=== PATIENT | female | born 1985 | race Caucasian/White ===

== ENCOUNTER 2017-10-09 16:50 | Emergency (ER) | payer OTHER ==
[~2017-10-09] VITALS: Ht 157.5 cm; Wt 42.9 kg
[2017-10-09 17:23] VITALS: BP 111/57; PULSE 73; RESP 16; TEMP 99; O2SAT 99
--- NOTE | 2017-10-09 18:56 | PD ---
HPI Chief Complaint: Related Problem Time Seen by Provider: 18:53 Travel History International Travel<30 days: No Contact w/Intl Traveler<30days: No Traveled to known affect area: No History of Present Illness HPI Patient comes in complaining of some vaginal bleeding, and abdominal cramping, ongoing for the past day or so. Patient states that she is with her last menstrual period during September 02, 2017.... Currently her cramping is 0 out of 10. Patient denies any active ongoing bleeding. Patient is here for ongoing evaluation and just concerned about possible miscarriage. Patient denies any previous miscarriages. No known drug allergy No past medical history PFSH Social History Tobacco Use: No Allergies-Medications (Allergen,Severity, Reaction): Coded Allergies: No Known Allergies (Unverified , 10/09/17) Reported Meds & Prescriptions Reported Meds & Active Scripts Active No Active Prescriptions or Reported Medications Review of Systems General / Constitutional: No: Fever Eyes: No: Visual changes HENT: No: Headaches Cardiovascular: No: Chest Pain or Discomfort Respiratory: No: Shortness of Breath Gastrointestinal: No: Abdominal Pain Genitourinary: Positive: Vaginal Bleeding Musculoskeletal: No: Pain Skin: No Rash Neurologic: No: Weakness Psychiatric: No: Depression Endocrine: No: Polydipsia Hematologic/Lymphatic: No: Easy Bruising Physical Exam Narrative GENERAL: SKIN: Warm and dry. HEAD: Atraumatic. Normocephalic. EYES: Pupils equal and round. No scleral icterus. No injection or drainage. ENT: No nasal bleeding or discharge. Mucous membranes pink and moist. NECK: Trachea midline. No JVD. CARDIOVASCULAR: Regular rate and rhythm. RESPIRATORY: No accessory muscle use. Clear to auscultation. Breath sounds equal bilaterally. GASTROINTESTINAL: Abdomen soft, non-tender, nondistended. MUSCULOSKELETAL: Extremities without clubbing, cyanosis, or edema. No obvious deformities. NEUROLOGICAL: Awake and alert. No obvious cranial nerve deficits. Motor grossly within normal limits. Five out of 5 muscle strength in the arms and legs. Normal speech. PSYCHIATRIC: Appropriate mood and affect; insight and judgment normal. Data Data Last Documented VS Vital Signs Date Time Temp Pulse Resp B/P (MAP) Pulse Ox O2 Delivery O2 Flow Rate FiO2 10/09/17 20:57 70 18 111/73 (86) 99 Room Air 10/09/17 17:23 99.0 Orders Orders Beta Hcg (Quant/Titer) (10/09/17 19:06) Complete Blood Count With Diff (10/09/17 19:06) Comprehensive Metabolic Panel (10/09/17 19:06) Lipase (10/09/17:06) Urinalysis - C+S If Indicated (10/09/17 19:06) Iv Access Insert/Monitor (10/09/17 19:06) Ecg Monitoring (10/09/17 19:06) Oximetry (10/09/17 19:06) NPO (10/09/17 19:06) Sodium Chloride 0.9% Flush (Ns Flush) (10/09/17 19:15) Ed Urine Pregnancytest Poc (10/09/17 19:06) Complete Rh (10/09/17 19:06) Us Pelvis (Ques Pr/Ect)W Trans (10/09/17 19:06) Labs Laboratory Tests Test 10/09/17 19:20 White Blood Count 8.1 TH/MM3 Red Blood Count 4.36 MIL/MM3 Hemoglobin 12.8 GM/DL Hematocrit 37.3 % Mean Corpuscular Volume 85.5 FL Mean Corpuscular Hemoglobin 29.4 PG Mean Corpuscular Hemoglobin Concent 34.4 % Red Cell Distribution Width 12.0 % Platelet Count 257 TH/MM3 Mean Platelet Volume 7.2 FL Neutrophils (%) (Auto) 52.4 % Lymphocytes (%) (Auto) 38.4 % Monocytes (%) (Auto) 8.1 % Eosinophils (%) (Auto) 0.8 % Basophils (%) (Auto) 0.3 % Neutrophils # (Auto) 4.2 TH/MM3 Lymphocytes # (Auto) 3.1 TH/MM3 Monocytes # (Auto) 0.7 TH/MM3 Eosinophils # (Auto) 0.1 TH/MM3 Basophils # (Auto) 0.0 TH/MM3 CBC Comment DIFF FINAL Differential Comment Urine Color YELLOW Urine Turbidity CLEAR Urine pH 5.5 Urine Specific [place] 1.010 Urine Protein NEG mg/dL Urine Glucose (UA) NEG mg/dL Urine Ketones NEG mg/dL Urine Occult Blood TRACE Urine Nitrite NEG Urine Bilirubin NEG Urine Urobilinogen 0.2 MG/DL Urine Leukocyte Esterase NEG Urine RBC 0-3 /hpf Urine WBC 0-2 /hpf Urine Squamous Epithelial Cells 0-5 /hpf Microscopic Urinalysis Comment CULT NOT INDICATED Blood Urea Nitrogen 17 MG/DL Creatinine 0.63 MG/DL Random Glucose 81 MG/DL Total Protein 7.4 GM/DL Albumin 3.8 GM/DL Calcium Level 8.7 MG/DL Alkaline Phosphatase 48 U/L Aspartate Amino Transf (AST/SGOT) 16 U/L Alanine Aminotransferase (ALT/SGPT) 18 U/L Total Bilirubin 0.2 MG/DL Sodium Level 138 MEQ/L Potassium Level 3.6 MEQ/L Chloride Level 105 MEQ/L Carbon Dioxide Level 26.9 MEQ/L Anion Gap 6 MEQ/L Estimat Glomerular Filtration Rate 111 ML/MIN Lipase 133 U/L Human Chorionic Gonadotropin, Quant 7521 MIU/ML [facility] Medical Decision Making Medical Screen Exam Complete: Yes Emergency Medical Condition: Yes Medical Record Reviewed: Yes Differential Diagnosis Threatened AB versus missed AB versus incomplete AB versus UTI Narrative Course UA is negative for any UTI CBC shows no leukocytosis, no anemia, normal platelet count and no left shift. Electrolytes are all within normal limits, normal kidney liver and pancreatic functions as well. Blood bank currently waiting, hCG quant currently awaiting, and ultrasound currently awaiting as well at 2025. At 2050 blood bank O+/////Quantitative hCG 7521 Ultrasound performed and read by radiologist as gestational sac in the endometrial cavity with measurements too small for accurate dating, however no adnexal masses are noted or large free fluid in the cul-de-sac or throughout the Ellik cavity Diagnosis Primary Impression: Threatened Patient Instructions: General Instructions, Threatened Miscarriage (ED) Scripts No Active Prescriptions or Reported Meds Disposition: 01 DISCHARGE HOME Condition: Stable Miller Soto MD Oct 09, 2017 18:56
[2017-10-09 19:10] VITALS: BP 113/74; PULSE 73; RESP 18; O2SAT 99
[2017-10-09 19:13] VITALS: O2SAT 99
[2017-10-09] MEDS ORDERED: SODIUM CHLORIDE 0.9% FLUSH 10 ML FLUSH IV FLUSH PRN (19:15)
[2017-10-09 19:43] LABS: AUTOMATED NEUTROPHIL # 4.2 TH/MM3 (1.8-7.7); BASOPHIL % 0.3 % (0.0-2.0); EOSINOPHIL # 0.1 TH/MM3 (0-0.4); EOSINOPHIL % 0.8 % (0.0-4.0); HEMATOCRIT 37.3 % (35.0-46.0); HEMOGLOBIN 12.8 GM/DL (11.6-15.3); LYMPH % 38.4 % (9.0-44.0); LYMPHOCYTE # 3.1 TH/MM3 (1.0-4.8); MEAN CELL VOLUME 85.5 FL (80.0-100.0); MEAN CORPUSCULAR HEMOGLOBIN 29.4 PG (27.0-34.0); MEAN CORPUSCULAR HGB CONC 34.4 % (32.0-36.0); MEAN PLATELET VOLUME 7.2 FL (7.0-11.0); MONO % 8.1 % (0.0-8.0); MONOCYTE # 0.7 TH/MM3 (0-0.9); NEUT % 52.4 % (16.0-70.0); PLATELET COUNT 257 TH/MM3 (150-450); RED BLOOD COUNT 4.36 MIL/MM3 (4.00-5.30); WHITE BLOOD COUNT 8.1 TH/MM3 (4.0-11.0)
[2017-10-09 19:46] LABS: BILIRUBIN, URINE NEG (NEG); BLOOD, URINE TRACE (NEG); GLUCOSE,URINE NEG (NEG); KETONE, URINE NEG (NEG); NITRITE,URINE NEG (NEG); PH, URINE 5.5 (5.0-8.5); URINE COLOR YELLOW (YELLW/STRAW); URINE LEUKOCYTE ESTERASE NEG (NEG)
[2017-10-09 19:53] LABS: CHLORIDE 105 MEQ/L (98-107); SODIUM (NA) 138 MEQ/L (136-145)
[2017-10-09 19:56] LABS: ALBUMIN 3.8 GM/DL (3.4-5.0); BICARBONATE 26.9 MEQ/L (21.0-32.0); BLOOD UREA NITROGEN 17 MG/DL (7-18); CALCIUM 8.7 MG/DL (8.5-10.1); GLUCOSE,RANDOM 81 MG/DL (74-106)
[2017-10-09 19:59] LABS: ALT (GPT) 18 U/L (10-53); AST (GOT) 16 U/L (15-37); CREATININE 0.63 MG/DL (0.50-1.00); GLOMERULAR FILTRATION RATE 111 ML/MIN (>89)
[2017-10-09 20:00] LABS: TOTAL BILIRUBIN ADULT 0.2 MG/DL (0.2-1.0)
[2017-10-09 20:01] LABS: TOTAL PROTEIN 7.4 GM/DL (6.4-8.2)
[2017-10-09 20:02] LABS: ALKALINE PHOSPHATASE 48 U/L (45-117)
[2017-10-09 20:05] LABS: RBC, URINE 0-3 /hpf (0-3); SQUAMOUS EPITHELIAL CELL URINE 0-5 /hpf (0-5); WBC, URINE 0-2 /hpf (0-5)
[2017-10-09 20:57] VITALS: BP 111/73; PULSE 70; RESP 18; O2SAT 99
--- NOTE | 2017-10-09 21:36 | RADRPT ---
EXAM DATE/TIME: 10/09/2017 20:42 [place] COMPARISON: No previous studies available for comparison. INDICATIONS : Vaginal bleeding and pain. LAB(S): Beta-hC MEDICAL HISTORY : Vaginal pain and bleeding. SURGICAL HISTORY : None. ENCOUNTER: Initial ACUITY: 1 day PAIN SCORE: 3/10 LOCATION: Left pelvis MEASUREMENTS: UTERUS: 9.5 x 7.1 x 4.9 cm ENDOMETRIAL STRIPE: 8 mm RIGHT OVARY: 3.1 x 3.1 x 1.9 cm LEFT OVARY: cm Non visualized FREE FLUID: Yes cul de sac. CROWN RUMP LENGTH: n/a = WKS DAYS FHR: n/a BPM FINDINGS: Gestational sac present in the uterine fundus with measurement to small for accurate dating. No yolk sac or pole. Smaller free fluid in cul-de-sac. Follicular cysts in the right ovary. Left ovary not visualized. CONCLUSION: 1. Gestational sac in the endometrial cavity with measurements too small for accurate dating. 2. Small amount free fluid in the cul-de-sac. Santiago Perkins MD on October 09, 2017 at 21:31 Board Certified Radiologist. This report was verified electronically.
[2017-10-09 22:16] VITALS: BP 112/76
== END 2017-10-09 22:17 | disposition home or self-care (01) ==
LOC: PHED 16:50
DX: O20.0 Threatened abortion (principal)
CPT/HCPCS: 76700; 76817; 80053; 81001; 83690; 84702; 84703; 85025; 86901; 99284

== ENCOUNTER 2018-01-04 19:03 | Emergency (ER) | payer MEDICAID, OTHER ==
[~2018-01-04] VITALS: Ht 157.5 cm; Wt 46.8 kg
[2018-01-04 19:08] VITALS: BP 96/53; PULSE 80; RESP 16; TEMP 97.9; O2SAT 98
--- NOTE | 2018-01-04 19:34 | PD ---
HPI Chief Complaint: Abdominal pain Time Seen by Provider: 19:20 Travel History International Travel<30 days: No Contact w/Intl Traveler<30days: No Traveled to known affect area: No History of Present Illness HPI 32yo F who is 17 weeks here with c/o right lower abdominal pain since yesterday. Said it is sharp and nonradiating. Abdomen feels tight but pain is mainly in right lower abdomen. Pt has some dysuria. Denies any fever, chest pain, sob, n/v, hematuria, vaginal bleeding, vaginal discharge. Pt said she thinks she has umbilical hernia. No abdominal surgeries in the past. PFSH Past Medical History Diminished Hearing: No ?: Social History Alcohol Use: No Tobacco Use: No Substance Use: No Allergies-Medications (Allergen,Severity, Reaction): Coded Allergies: No Known Allergies (Unverified , 01/04/18) Reported Meds & Prescriptions Reported Meds & Active Scripts Active Cephalexin 500 Mg Cap 500 Mg PO Q12H 7 Days Reported Tylenol (Acetaminophen) 325 Mg Tab 650 Mg PO Q4H PRN [] 1 Tab PO DAILY Review of Systems Except as stated in HPI: all other systems reviewed are Neg Physical Exam Narrative GENERAL: 32yo F in mild distress. SKIN: Focused skin assessment warm/dry. HEAD: Atraumatic. Normocephalic. EYES: Pupils equal and round. No scleral icterus. No injection or drainage. ENT: No nasal bleeding or discharge. Mucous membranes pink and moist. NECK: Trachea midline. No JVD. CARDIOVASCULAR: Regular rate and rhythm. No murmur appreciated. RESPIRATORY: No accessory muscle use. Clear to auscultation. Breath sounds equal bilaterally. GASTROINTESTINAL: Abdomen soft, gravid abdomen. +TTP RLQ and suprapubic region. Umbilical region is soft, no hernia palpated. PELVIC: +Small amount of white vaginal discharge. No blood. No CMT or adnexal tenderness bilaterally. Cervical os closed. BACK: +CVA tenderness on right. MUSCULOSKELETAL: No obvious deformities. No clubbing. No cyanosis. No edema. NEUROLOGICAL: Awake and alert. No obvious cranial nerve deficits. Motor grossly within normal limits. Normal speech. PSYCHIATRIC: Appropriate mood and affect; insight and judgment normal. Data Data Last Documented VS Vital Signs Date Time Temp Pulse Resp B/P (MAP) Pulse Ox O2 Delivery O2 Flow Rate FiO2 01/04/18 22:47 72 18 106/65 (79) 98 01/04/18 20:51 Room Air 01/04/18 19:08 97.9 Orders Orders Complete Blood Count With Diff (01/04/18 19:28) Comprehensive Metabolic Panel (01/04/18 19:28) Lipase (01/04/18 19:28) Urinalysis - C+S If Indicated (01/04/18 19:28) Prothrombin Time / Inr (Pt) (01/04/18 19:28) Act Partial Throm Time (Ptt) (01/04/18 19:28) Ed Poc Ultrasound (01/04/18 ) Urine Culture (01/04/18 19:43) Ceftriaxone Inj (Rocephin Inj) (01/04/18 20:15) Gc And Chlamydia Pcr (01/04/18 20:05) Wet Prep Profile (01/04/18 20:05) Acetaminophen (Tylenol) (01/04/18 20:30) Sodium Chlor 0.9% 1000 Ml Inj (Ns 1000 M (01/04/18 20:45) Mri Abdomen W/O Contrast (01/04/18 ) Ed Discharge Order (01/04/18 22:22) Labs Laboratory Tests Test 01/04/18 19:30 01/04/18 19:43 01/04/18 20:30 White Blood Count 8.6 TH/MM3 Red Blood Count 3.95 MIL/MM3 Hemoglobin 11.6 GM/DL Hematocrit 34.7 % Mean Corpuscular Volume 87.8 FL Mean Corpuscular Hemoglobin 29.2 PG Mean Corpuscular Hemoglobin Concent 33.3 % Red Cell Distribution Width 11.8 % Platelet Count 257 TH/MM3 Mean Platelet Volume 7.8 FL Neutrophils (%) (Auto) 60.9 % Lymphocytes (%) (Auto) 30.6 % Monocytes (%) (Auto) 7.2 % Eosinophils (%) (Auto) 0.7 % Basophils (%) (Auto) 0.6 % Neutrophils # (Auto) 5.2 TH/MM3 Lymphocytes # (Auto) 2.6 TH/MM3 Monocytes # (Auto) 0.6 TH/MM3 Eosinophils # (Auto) 0.1 TH/MM3 Basophils # (Auto) 0.1 TH/MM3 CBC Comment DIFF FINAL Differential Comment Prothrombin Time 9.8 SEC Prothromb Time International Ratio 1.0 RATIO Activated Partial Thromboplast Time 25.0 SEC Blood Urea Nitrogen 13 MG/DL Creatinine 0.55 MG/DL Random Glucose 86 MG/DL Total Protein 7.2 GM/DL Albumin 3.1 GM/DL Calcium Level 8.3 MG/DL Alkaline Phosphatase 56 U/L Aspartate Amino Transf (AST/SGOT) 18 U/L Alanine Aminotransferase (ALT/SGPT) 23 U/L Total Bilirubin 0.3 MG/DL Sodium Level 136 MEQ/L Potassium Level 3.8 MEQ/L Chloride Level 105 MEQ/L Carbon Dioxide Level 23.3 MEQ/L Anion Gap 8 MEQ/L Estimat Glomerular Filtration Rate 130 ML/MIN Lipase 302 U/L Urine Color YELLOW Urine Turbidity [place] Urine pH 7.0 Urine Specific [place] 1.015 Urine Protein TRACE mg/dL Urine Glucose (UA) NEG mg/dL Urine Ketones NEG mg/dL Urine Occult Blood NEG Urine Nitrite NEG Urine Bilirubin NEG Urine Urobilinogen 0.2 MG/DL Urine Leukocyte Esterase MOD Urine RBC 0-3 /hpf Urine WBC 50-99 /hpf Urine Squamous Epithelial Cells 0-5 /hpf Urine Bacteria FEW /hpf Microscopic Urinalysis Comment CULTURE INDICATED Clue Cells (Wet Prep) NONE SEEN Vaginal Trichomonas (Wet Prep) NONE SEEN Vaginal Yeast (Wet Prep) NONE SEEN Chlamydia trachomatis DNA (PCR) NOT DETECTED Neisseria gonorrhoeae DNA (PCR) NOT DETECTED MDM Medical Decision Making Medical Screen Exam Complete: Yes Emergency Medical Condition: Yes Differential Diagnosis Appendicitis vs. pyelonephritis vs. related pain Narrative Course 32yo F with right lower abdominal pain. Pt also with dysuria but need to r/o appendicitis. MRI abdomen ordered to r/o appendicitis. Labs reviewed, no leukocytosis. Lipase normal. LFTs normal. UA showed moderate leukocyte. WBC 50-99. Culture indicated. Pt given ceftriaxone. Bedside Ultrasound reassuring and showed movement and normal heart rate. Wet prep negative. MRI abdomen showed mild hydronephrosis which is not unexpected secondary to gravid uterus. Otherwise no acute abnormality. Appendix is not definitely visualized. No inflammatory change in right lower quadrant to suggest acute appendicitis. I discussed with patient either to observe her in the hospital for serial abdominal exam or to have her return to the ED if symptoms worsen. Pt wants to go home and said will return if symptoms worsen. Tolerating PO and well appearing. Return precautions given. Procedures Procedure Narrative Emergency Department Pelvic ultrasound was performed with patient consent. The curvilinear probe was used in the transverse and sagittal views within the suprapubic region revealing single intrauterine . heart rate was 145bpm. Diagnosis Primary Impression: Pyelonephritis affecting Qualified Codes: O23.02 - Infections of kidney in , second trimester Patient Instructions: General Instructions Departure Forms: Tests/Procedures Additional Instructions: Please follow up with your OBGYN in 1-2 days. Return to the ED if you have fever, vomiting, unable to keep anything down, worsening abdominal pain. Med/Other Pt SpecificInfo: Prescription(s) given Scripts Cephalexin (Cephalexin) 500 Mg Cap 500 MG PO Q12H for Infection for 7 Days, #14 CAP 0 Refills Prov: Nina Rodriguez DO 01/04/18 Disposition: 01 DISCHARGE HOME Condition: Stable Nina Rodriguez DO Jan 04, 2018 19:34
[2018-01-04 19:52] LABS: BILIRUBIN, URINE NEG (NEG); BLOOD, URINE NEG (NEG); GLUCOSE,URINE NEG (NEG); KETONE, URINE NEG (NEG); NITRITE,URINE NEG (NEG); URINE COLOR YELLOW (YELLW/STRAW); URINE LEUKOCYTE ESTERASE MOD (NEG)
[2018-01-04 19:55] LABS: AUTOMATED NEUTROPHIL # 5.2 TH/MM3 (1.8-7.7); BASOPHIL # 0.1 TH/MM3 (0-0.2); BASOPHIL % 0.6 % (0.0-2.0); EOSINOPHIL # 0.1 TH/MM3 (0-0.4); EOSINOPHIL % 0.7 % (0.0-4.0); HEMATOCRIT 34.7 % (35.0-46.0); HEMOGLOBIN 11.6 GM/DL (11.6-15.3); LYMPH % 30.6 % (9.0-44.0); LYMPHOCYTE # 2.6 TH/MM3 (1.0-4.8); MEAN CELL VOLUME 87.8 FL (80.0-100.0); MEAN CORPUSCULAR HEMOGLOBIN 29.2 PG (27.0-34.0); MEAN CORPUSCULAR HGB CONC 33.3 % (32.0-36.0); MEAN PLATELET VOLUME 7.8 FL (7.0-11.0); MONO % 7.2 % (0.0-8.0); MONOCYTE # 0.6 TH/MM3 (0-0.9); NEUT % 60.9 % (16.0-70.0); PLATELET COUNT 257 TH/MM3 (150-450); RED BLOOD COUNT 3.95 MIL/MM3 (4.00-5.30); RED CELL DISTRIBUTION WIDTH 11.8 % (11.6-17.2); WHITE BLOOD COUNT 8.6 TH/MM3 (4.0-11.0)
[2018-01-04 19:58] LABS: CHLORIDE 105 MEQ/L (98-107); SODIUM (NA) 136 MEQ/L (136-145)
[2018-01-04 19:59] LABS: BACTERIA, URINE FEW /hpf; RBC, URINE 0-3 /hpf (0-3); SQUAMOUS EPITHELIAL CELL URINE 0-5 /hpf (0-5)
[2018-01-04 20:01] LABS: CALCIUM 8.3 MG/DL (8.5-10.1)
[2018-01-04 20:02] LABS: ALBUMIN 3.1 GM/DL (3.4-5.0); BICARBONATE 23.3 MEQ/L (21.0-32.0); BLOOD UREA NITROGEN 13 MG/DL (7-18); GLUCOSE,RANDOM 86 MG/DL (74-106)
[2018-01-04 20:04] LABS: PROTHROMBIN TIME - PATIENT 9.8 SEC (9.8-11.6)
[2018-01-04 20:05] LABS: ALT (GPT) 23 U/L (10-53); AST (GOT) 18 U/L (15-37); CREATININE 0.55 MG/DL (0.50-1.00); GLOMERULAR FILTRATION RATE 130 ML/MIN (>89)
[2018-01-04 20:06] LABS: TOTAL BILIRUBIN ADULT 0.3 MG/DL (0.2-1.0); TOTAL PROTEIN 7.2 GM/DL (6.4-8.2)
[2018-01-04 20:08] LABS: ALKALINE PHOSPHATASE 56 U/L (45-117)
[2018-01-04] MEDS ORDERED: cefTRIAXone INJ 1,000 MG in SODIUM CHLORIDE 0.9% INJ 100 ML IV ONE (20:15)
[2018-01-04] MEDS ORDERED: ACETAMINOPHEN 325 MG TAB PO ONE (20:30)
[2018-01-04] MEDS ORDERED: SODIUM CHLOR 0.9% 1000 ML INJ 1,000 ML IV ONE (20:45)
[2018-01-04 20:51] VITALS: BP 99/60; PULSE 76; RESP 18; O2SAT 99
[2018-01-04] MEDS ORDERED: TYLE325T PO (21:21)
[2018-01-04] MEDS ORDERED: prenatal PO (21:21)
--- NOTE | 2018-01-04 21:29 | RADRPT ---
EXAM DATE: 01/04/2018 9:15 PM EDT AGE/SEX: 32 years / Female INDICATIONS: Abdominal pain. 17 weeks . CLINICAL DATA: This is the patient's initial encounter. Patient reports that signs and symptoms have been present for 1 day and indicates a pain score of 3/10. MEDICAL/SURGICAL HISTORY: . . Breast augmentation. COMPARISON: None. TECHNIQUE: Multiplanar, multisequence images of the abdomen was performed without contrast. FINDINGS: A gravid uterus is observed. I am unable to confidently identify the appendix. I appreciate no inflam matory change within the right lower quadrant clearly suggest an acute appendicitis. Minimal hydronep hrosis on the right. No hydronephrosis on the left.. Liver and gallbladder are unremarkable. Bowel st ructures are unremarkable. CONCLUSION: 1. Mild hydronephrosis which is not unexpected secondary to the gravid uterus. Otherwise, no acute a bnormality observed. Electronically signed by: Kit Metzger MD 01/04/2018 9:28 PM EDT
[2018-01-04] MEDS ORDERED: CEPH500C PO (22:19)
[2018-01-04 22:47] VITALS: BP 106/65
== END 2018-01-04 22:49 | disposition home or self-care (01) ==
LOC: PHED 19:03
DX: O23.02 Infections of kidney in pregnancy, second trimester (principal); O26.892 Other specified pregnancy related conditions, second trimester; R10.31 Right lower quadrant pain; Z3A.17 17 weeks gestation of pregnancy
CPT/HCPCS: 74181; 80053; 81001; 83690; 85025; 85610; 85730; 87086; 87210; 87491; 87591; 96365; 99285; J0696; J7030

== ENCOUNTER 2018-01-05 20:00 | Emergency (ER) | payer MEDICAID ==
[~2018-01-05 20:00] MED LIST: CEPH500C PO; TYLE325T PO; prenatal PO
--- NOTE | 2018-01-05 21:27 | PD ---
HPI Chief Complaint pelvic pain Date Seen: Jan 05, 2018 Time Seen: 21:00 Travel History International Travel<30 Days: No Contact w/Intl Traveler<30Days: No Known Affected Area: No History of Present Illness HPI pt c/o pelvic pain intermittent for the last 2 days. yesterday the pain did radiate to her right side. she denies f/c/n/v/VB or contractions. pain has actually subsided now. she did not require pain meds. yesterday she was seen in ER in [place] and diagnosed with UTI and given keflex. today pain recurred while she was in the shower. FOB panicked and brought pt to [facility]. has also been complicated by umbilical hernia. Weeks Gestation: 17 Para: 3 : 4 History Past Medical History Medical History: Denies Significant Hx Obstetric History Obstetric History X 3 Past Surgical History Narrative Surgical breast augmentation Family History Family History: Negative Social History Alcohol Use: No Tobacco Use: No Substance Abuse: No Allergies-Medications (Allergen,Severity, Reaction): Coded Allergies: No Known Allergies (Unverified , 01/04/18) Home Meds Active Scripts Cephalexin (Cephalexin) 500 Mg Cap, 500 MG PO Q12H for Infection for 7 Days, # 14 CAP 0 Refills Prov:Nina Rodriguez DO 01/04/18 Reported Medications Acetaminophen (Tylenol) 325 Mg Tab, 650 MG PO Q4H Y for PAIN SCALE 1 TO 10, TAB 0 Refills 01/04/18 [] No Conflict Check, 1 TAB PO DAILY 01/04/18 Review of Systems Except as stated in HPI: all other systems reviewed are Neg Physical Exam AFVSS Narrative GENERAL: Well-nourished, well-developed patient. SKIN: Warm and dry. HEAD: Normocephalic and atraumatic. EYES: No scleral icterus. No injection or drainage. ENT: No nasal drainage noted. Mucous membranes pink. Airway patent. NECK: Supple, trachea midline. No JVD. CARDIOVASCULAR: Regular rate and rhythm without murmurs, gallops, or rubs. RESPIRATORY: Breath sounds equal bilaterally. No accessory muscle use. BREASTS: Bilateral exam showed no masses , no retractions, no nipple discharge. ABDOMEN/GI: Abdomen soft, non-tender, bowel sounds present, no rebound, no guarding Uterine Contractions: [-] FHT's: Category: [-] Baseline: [-] 160s Reactive: [-] Variability: [-] Decels: [-] EXTREMITIES: No cyanosis or edema. BACK: Nontender without obvious deformity. No CVA tenderness. NEUROLOGICAL: Awake and alert. Motor and sensory grossly within normal limits. Five out of 5 muscle strength in all muscle groups. Normal speech. Data Data Vital Signs Reviewed: Yes [facility] Medical Record Reviewed: Yes Plan reviewed s/sx of pyelonephritis reviewed pt has cystitis, encouraged pt to finish her antibiotics PO hydrate and to empty bladder frequently Critical Care Narrative pt without pain currently, no s/sx of pyelonephritis. stable for d/c home. Diagnosis Diagnosis: Primary Impression: UTI (urinary tract infection) in in second trimester Disposition: 01 DISCHARGE HOME Condition: Stable Patient Instructions: General Instructions, Abdominal Pain in (ED), Urinary Tract Infection in (ED) Additional Instructions: RETURN FOR CONTRACTIONS, LOSS OF FLUID (WATER BREAKING), VAGINAL BLEEDING, OR DECREASED MOVEMENT DRINK 8-10 LARGE GLASSES OF WATER EVERY DAY TAKE FREQUENT BATHROOM BREAKS DURING THE DAY NO SEX UNTIL ANTIBIOTICS ARE COMPLETED FINISH ALL PRESCRIBED ANTIBIOTICS KEEP YOUR SCHEDULED APPOINTMENT WITH YOUR PROVIDER Departure Forms: Tests/Procedures Billy Khoury MD Jan 05, 2018 21:27
== END 2018-01-05 21:30 | disposition home or self-care (01) ==
LOC: HOBED 20:00
DX: O23.42 Unspecified infection of urinary tract in pregnancy, second trimester (principal); Z3A.17 17 weeks gestation of pregnancy
CPT/HCPCS: 99285

== ENCOUNTER 2018-06-15 06:08 | Inpatient (IN) ==
[2018-06-15] MEDS ORDERED: Oxytocin 30 Units/500ml Premix 30 UNITS/500 ML BAG IV.SIG ONE (07:23)
[2018-06-15] MEDS ORDERED: Sod Chloride 0.9% Inj 1,000 ML IV.CONT PRN (07:23)
[2018-06-15] MEDS ORDERED: Sodium Chlor 0.9% Inj 500 ML IV.SIG PRN (07:23)
[2018-06-15] MEDS ORDERED: fentaNYL Citrate Inj 100 MCG/2 ML Ampul IV.PUSH PRN ×2 (07:23)
[2018-06-15] MEDS ORDERED: Naloxone Inj 0.4 MG/ML Vial IV.PUSH PRN ×2 (07:23→14:10)
[2018-06-15] MEDS ORDERED: Penicillin G Potassium Inj 5,000,000 UNIT in Sodium Chloride 0.9% Inj 100 ML IV.SIG ONE (07:30)
[2018-06-15] MEDS ORDERED: Citric Acid/Sodium Citrate Liq 30 ML UDC PO SCH (07:30)
--- NOTE | 2018-06-15 07:35 | P.HPOB ---
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 GBS positive. She does report that the baby has been active at one point transverse oblique lie one point breech presentation transverse oblique lie was around 36 weeks. Pelvis tested 08/23/2013 without incident. 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 This includes certification that hospital inpatient services are reasonable and necessary and in the case of services not specified as inpatient-only under 42 CFR 419.22(n), that they are appropriately provided as inpatient services in accordance to with the 2-midnight benchmark under 43 CFR 412.3(e) Estimated Total Length of Stay (Days): 2 Plans for Post Hospital Care: Home [facility] - History History Provided By: Patient - Tobacco History Second Hand Smoke Exposure: No Smoking Status: Never smoker - Alcohol History How Often Do You Have a Drink Containing Alcohol: Never - Substance Use History Substance History: No History of Abuse - Travel History History of Recent Travel: No Recent Travel in the [place] Within the Last 8 Weeks: No Recent Travel Out of the Country Within the Last 8 Weeks: No - Immunization History Tetanus Immunization: Unsure Hx Influenza Vaccine This Season: No Medications and Allergies Active Medications: Active Medications Citric Acid/Sodium Citrate (Sodium Citrate/Citric Acid Liq) 30 ml PO PNEUMATIC PRESS HAND [facility] Stop: 06/19/18 07:29 Fentanyl Citrate (Fentanyl Inj) 50 mcg IV.PUSH Q1H PRN PRN Reason: Pain Scale 3 - 5 Fentanyl Citrate (Fentanyl Inj) 100 mcg IV.PUSH Q1H PRN PRN Reason: PAIN SCALE 6 TO 10 Lactated Ringer's (Lr 1000 Ml Inj) 1,000 mls @ 3,000 mls/hr IV.SIG UNSCH PRN PRN Reason: compromise or epidural Lactated Ringer's (Lr 1000 Ml Inj) 1,000 mls @ 125 mls/hr IV.CONT .Q8H [facility] Sodium Chloride (Ns Inj) 500 mls @ 1,000 mls/hr IV.SIG UNSCH PRN PRN Reason: SEE LABEL COMMENTS Sodium Chloride (Ns Inj) 1,000 mls @ 100 mls/hr IV.CONT .Q10H PRN PRN Reason: SEE LABEL COMMENTS Oxytocin (Pitocin 30 Units/Ns 500 Ml Premix) 30 units in 500 mls @ 999 mls/hr IV.SIG BOLUS ONE Stop: 06/15/18 07:53 Penicillin G Potassium 5,000, (000 unit/ Sodium Chloride) 100 mls @ 200 mls/hr IV.SIG ONCE ONE Stop: 06/15/18 07:52 Penicillin G Potassium 2,500, (000 unit/ Sodium Chloride) 100 mls @ 200 mls/hr IV.SIG Q4H [facility] Lidocaine HCl (Xylocaine 1% Inj) 0.1 ml I-DERMAL PRN PRN PRN Reason: For IV start Stop: 06/18/18 07:22 Lidocaine HCl (Xylocaine 1% Inj) 10 ml INFILTRATN PRN PRN PRN Reason: For episiotomy repair Stop: 06/17/18 07:22 Mineral Oil (Muri-Lube Oil) 10 ml TOPICAL PRN PRN PRN Reason: PRN perineal massage Naloxone HCl (Narcan Inj) 0.1 mg IV.PUSH Q2M PRN PRN Reason: for opiate reversal Allergies Allergy/AdvReac Type Severity Reaction Status Date / Time No Known Allergies Allergy Verified 06/15/18 06:37 Home Medications Medication Instructions Recorded Confirmed Type Formula 1 tab PO DAILY 04/17/18 06/15/18 History Exam Vital signs: Vital Signs 06/15/18 06:30 06/15/18 06:40 Temperature 97.8 F Pulse Rate 71 Respiratory Rate 18 Blood Pressure 114/72 Intake & Output 06/14/18 06/15/18 06/15/18 18:59 06:59 18:59 Weight 50.802 kg 51 kg Other: Weight On Admission 51 kg Narrative: GENERAL: Well-nourished, well-developed patient. SKIN: Warm and dry. HEAD: Normocephalic and atraumatic. EYES: No scleral icterus. No injection or drainage. ENT: No nasal drainage noted. Mucous membranes pink. Airway patent. NECK: Supple, trachea midline. No JVD. CARDIOVASCULAR: Regular rate and rhythm without murmurs, gallops, or rubs. RESPIRATORY: Breath sounds equal bilaterally. No accessory muscle use. BREASTS: Bilateral exam showed no masses , no retractions, no nipple discharge. ABDOMEN/GI: Abdomen soft, non-tender, bowel sounds present, no rebound, no guarding Gravid to 40 weeks size Fundal Height: 38 GENITOURINARY: External Genitalia: intact and normal in appearance BUS glands: Unremarkable Cervix: Soft mid posterior Dilatation: 3 Effacement: 70 Station: -1 Presentation: Vertex confirmed by limited ultrasound at the bedside Membranes: Intact Uterine Contractions: Present FHT's: Category: 1 EXTREMITIES: No cyanosis or edema. BACK: Nontender without obvious deformity. No CVA tenderness. NEUROLOGICAL: Awake and alert. Motor and sensory grossly within normal limits. Normal speech. Caprini VTE Risk Assessment Caprini VTE Risk Assessment: No/Low Risk (score <= 1) Caprini Risk Assessment Model: Point Value = 1 Point Value = 2 Point Value = 3 Point Value = 5 Age 41-60 Minor surgery BMI > 25 kg/m2 Swollen legs Varicose veins or History of unexplained or recurrent spontaneous Oral contraceptives or hormone replacement Sepsis (< 1 month) Serious lung disease, including pneumonia (< 1 month) Abnormal pulmonary function Acute myocardial infarction Congestive heart failure (< 1 month) History of inflammatory bowel disease Medical patient at bed rest Age 61-74 Arthroscopic surgery Major open surgery (> 45 min) Laparoscopic surgery (> 45 min) Malignancy Confined to bed (> 72 hours) Immobilizing plaster cast Central venous access Age >= 75 History of VTE Family history of VTE Factor V Leiden Prothrombin [id number] Lupus anticoagulant Anticardiolipin antibodies Elevated serum homocysteine Heparin-induced thrombocytopenia Other congenital or acquired thrombophilia Stroke (< 1 month) Elective arthroplasty Hip, pelvis, or leg fracture Acute spinal cord injury (< 1 month) Prophylaxis Regimen: Total Risk Factor Score Risk Level Prophylaxis Regimen 0-1 Low Early ambulation 2 Moderate Order ONE of the following: *Sequential Compression Device (SCD) *Heparin 5000 units SQ BID 3-4 Higher Order ONE of the following medications: *Heparin 5000 units SQ TID *Enoxaparin/Lovenox 40 mg SQ daily (WT < 150 kg, CrCl > 30 mL/min) *Enoxaparin/Lovenox 30 mg SQ daily (WT < 150 kg, CrCl > 10-29 mL/min) *Enoxaparin/Lovenox 30 mg SQ BID (WT < 150 kg, CrCl > 30 mL/min) AND/OR *Sequential Compression Device (SCD) 5 or more Highest Order ONE of the following medications: *Heparin 5000 units SQ TID (Preferred with Epidurals) *Enoxaparin/Lovenox 40 mg SQ daily (WT < 150 kg, CrCl > 30 mL/min) *Enoxaparin/Lovenox 30 mg SQ daily (WT < 150 kg, CrCl > 10-29 mL/min) *Enoxaparin/Lovenox 30 mg SQ BID (WT < 150 kg, CrCl > 30 mL/min) AND *Sequential Compression Device (SCD) Assessment and Plan - Diagnosis (1) Postmaturity , 40-42 weeks gestation Code(s): O48.0 - Post-term Status: Acute (2) Encounter for induction of labor Code(s): Z34.90 - Encounter for supervision of normal , unspecified, unspecified trimester Status: Acute (3) Vertex presentation of fetus in third trimester Code(s): Z34.93 - Encounter for supervision of normal , unspecified, third trimester Status: Acute (4) Positive GBS test Code(s): B95.1 - Streptococcus, group B, as the cause of diseases classified elsewhere Status: Acute - Plan Plan to start GBS prophylaxis and then subsequently administer Pitocin for at this point augmentation
[2018-06-15 07:45] LABS: Baso % (Auto) 0.4 % (0.0-2.0); Eos % (Auto) 0.4 % (0.0-4.0); Hematocrit 33.4 % (35.0-46.0); Hemoglobin 11.1 gm/dL (11.6-15.3); Lymph # (Auto) 2.2 th/mm3 (1.0-4.8); Lymph % (Auto) 27.5 % (9.0-44.0); Mean Corpuscular HGB Conc 33.3 % (32.0-36.0); Mean Corpuscular Hemoglobin 27.1 pg (27.0-34.0); Mean Corpuscular Volume 81.5 fL (80.0-100.0); Mean Platelet Volume 9.7 fL (7.0-11.0); Mono # (Auto) 0.7 th/mm3 (0.0-0.9); Mono % (Auto) 9.2 % (0.0-8.0); Neut # (Auto) 4.9 th/mm3 (1.8-7.7); Neut % (Auto) 62.5 % (16.0-70.0); Platelet Count 235 th/mm3 (150-450); Red Cell Distribution Width 13.9 % (11.6-17.2); White Blood Count 7.9 th/mm3 (4.0-11.0)
[2018-06-15 07:49] LABS: Bacteria,Urine Rare /hpf; Bilirubin,Urine Negative (Negative); Clarity,Urine Clear (Clear); Color,Urine Yellow (Yellw/Straw); Glucose,Urine (UA) Negative (Negative); Leukocyte Esterase,Urine Moderate (Negative); Mucus,Urine Few /lpf (Occasional); Nitrite,Urine Negative (Negative); Specific Gravity,Urine 1.009 (1.002-1.035); Squamous Epithelial Cell,Urine 2 /hpf (0-5)
[2018-06-15 07:51] LABS: Amphetamine Urine With Conf Neg (Neg); Benzodiazepine Urine With Conf Neg (Neg); Cocaine Urine With Conf Neg (Neg); Opiates Urine With Conf Neg (Neg)
[2018-06-15 07:53] LABS: Cannabinoid Urine With Conf Neg (Neg)
[2018-06-15] MEDS ORDERED: Oxytocin 30 Units/500ml Premix 30 UNITS/500 ML BAG IV.CONT PRN ×2 (07:55→14:10)
[2018-06-15] MEDS ORDERED: fentaNYL 2MCG-Bupiv 0.125% Epi 150 ML EPIDURAL ONE (10:46)
[2018-06-15] MEDS ORDERED: Penicillin G Potassium Inj 2,500,000 UNIT in Sodium Chlor 0.9% Inj 100 ML IV.SIG SCH (11:30)
[2018-06-15] MEDS ORDERED: Sodium Chlor 0.9% Inj 10 ML ONE (11:49)
[2018-06-15] MEDS ORDERED: Lidocaine PF 1% Inj 5 ML Vial ONE (11:49)
[2018-06-15] MEDS ORDERED: Bupivacaine/Epinephrine PF Inj 0.25% 10 ML Vial ONE (11:50)
[2018-06-15] MEDS ORDERED: fentaNYL 2MCG-Bupiv 0.125% Epi 150 ML EPIDURAL PRN (12:00)
[2018-06-15] MEDS ORDERED: fentaNYL Citrate Inj 100 MCG/2 ML Ampul EPIDURAL ONE (12:00)
--- NOTE | 2018-06-15 13:17 | P.OBLABOR ---
Subjective Interval history: Mom feeling well, epidural is on, feeling pressure. Objective Vital Signs: Vital Signs - 8 hr 06/15/18 06:30 06/15/18 06:40 06/15/18 09:58 Temperature 97.8 F Pulse Rate 71 62 Respiratory Rate 18 Blood Pressure 114/72 108/65 06/15/18 11:13 06/15/18 11:20 06/15/18 11:40 Temperature Pulse Rate 61 70 77 Respiratory Rate Blood Pressure 118/79 109/44 L 87/40 L 06/15/18 12:10 06/15/18 12:45 Temperature 97.9 F Pulse Rate 76 91 H Respiratory Rate 16 Blood Pressure 104/54 L 97/65 L Objective: Pelvic Exam: Cervix: anterior Dilatation: 8-9 Effacement: 100% Station: 0 Presentation: Vertex Membranes: ruptured- AROM at 13.10 w/ clear fluids Uterine Contractions: present Artificial Rupture of Membrane: Yes Artificial ROM Date: 06/15/18 Artificial ROM Time: 13:10 Assessment and Plan - Plan 32 yr old GBS + adequately treated in active labor. AROM at 13:10 w/ clear fluids. - Continue labor management - Anticipate Discussed with Dr. Meza and Dr. Abdul
--- NOTE | 2018-06-15 14:09 | P.OBDELI ---
Weeks Gestation: 40 Medical Induction of Labor: Yes Medical Induction Start Date: 06/15/18 Artificial Rupture of Membrane: Yes Artificial ROM Date: 06/15/18 Artificial ROM Time: 13:10 Anesthesia: Epidural Episiotomy: none Vaginal Delivery: Normal Presentation: Occiput anterior Nuchal Cord: None Delayed Cord Clamping (45 sec): Yes Shoulder Dystocia: Wood's screw maneuver done Laceration: None Estimated blood loss (mL): 200 Infant Male A Delivery Date: 06/15/18 Delivery Time: 13:58 Weight: 3.2 kg score (1 min): 9 score (5 min): 9
[2018-06-15] MEDS ORDERED: Witch Hazel 50%/Glyderin 12.5% 40 Pad Jar RECTAL PRN (14:10)
[2018-06-15] MEDS ORDERED: Bisacodyl 10 MG Supp RECTAL PRN (14:10)
[2018-06-15] MEDS ORDERED: Benzocaine 20% Top Spray 60 ML Can TOPICAL PRN (14:10)
[2018-06-15] MEDS ORDERED: Diphtheria/Tetanus/Pertussis Vaccine Inj 0.5 ML Syringe IM ONE (16:00)
[2018-06-15] MEDS ORDERED: Measles/Mumps/Rubella Vaccine Inj 0.5 ML Vial SQ ONE (16:00)
[2018-06-15] MEDS ORDERED: Zolpidem Tartrate 5 MG Tablet PO PRN (21:00)
[2018-06-15] MEDS: Senna/Docusate Sodium 8.6/50 MG Tablet PO SCH (21:36)
[2018-06-15] MEDS: Acetaminophen 325 MG Tablet PO PRN (21:36)
--- NOTE | 2018-06-16 07:37 | P.PNOB ---
Subjective Post day: 1 Interval history: 32 year old female s/p at 40 wks gestation, PPD1. AFVSS. Patient reports she is feeling well. Bleeding is decreasing and pain is well- controlled. She is breast feeding and bonding well with baby. Ambulating without difficulties. She is tolerating a diet without nausea or vomiting. She has not had a bowel movement. She has passed gas. Denies chest pain, dysuria, shortness of breath, or calf pain. Objective Vital Signs/I&O: Vital Signs 06/15/18 09:58 06/15/18 11:13 06/15/18 11:20 Temperature Pulse Rate 62 61 70 Respiratory Rate Blood Pressure 108/65 118/79 109/44 L 06/15/18 11:40 06/15/18 12:10 06/15/18 12:45 Temperature 97.9 F Pulse Rate 77 76 91 H Respiratory Rate 16 Blood Pressure 87/40 L 104/54 L 97/65 L 06/15/18 13:00 06/15/18 13:30 06/15/18 14:15 Temperature Pulse Rate 79 69 83 Respiratory Rate Blood Pressure 111/55 L 106/60 106/75 06/15/18 14:30 06/15/18 14:46 06/15/18 14:48 Temperature Pulse Rate 83 71 Respiratory Rate 18 Blood Pressure 105/67 82/58 L 06/15/18 14:49 06/15/18 15:03 06/15/18 15:16 Temperature Pulse Rate 76 75 80 Respiratory Rate 18 Blood Pressure 102/61 99/59 L 100/54 L 06/15/18 15:30 06/15/18 16:25 06/15/18 20:00 Temperature 98.1 F 98.7 F Pulse Rate 69 53 L 91 H Respiratory Rate 18 18 Blood Pressure 94/71 L 102/62 95/69 L Intake & Output 06/15/18 06/16/18 06/16/18 18:59 06:59 18:59 Intake Total 200 / 200 Balance 200 / 200 Weight 51 kg Intake: IV 200 / 200 Pfizerpen-G Inj 2,500,000 UNIT 100 / 100 In NS Inj 100 ML @ 200 mls/hr IV.SIG Q4H [facility] Rx#:[id number] Pfizerpen-G Inj 5,000,000 UNIT 100 / 100 In NS Inj 100 ML @ 200 mls/hr IV.SIG ONCE ONE Rx#:[id number] Other: Weight On Admission 51 kg Result Diagrams: 06/15/18 06:50 Objective Remarks: GENERAL: Well-nourished, well-developed patient. CARDIOVASCULAR: Regular rate and rhythm without murmurs, gallops, or rubs. RESPIRATORY: Breath sounds equal bilaterally. No accessory muscle use. ABDOMEN/GI: Abdomen soft, non-tender. Fundus: Firm, non-tender at umbilicus. GENITOURINARY: Light to moderate bleeding. EXTREMITIES: No cyanosis or edema, non-tender, without signs of DVT. Medications and IVs: Active Medications Acetaminophen (Tylenol) 650 mg PO Q4H PRN PRN Reason: PAIN SCALE 1 TO 2 Last Admin: 06/15/18 21:36 Dose: 650 mg Al Hydroxide/Mg Hydroxide (Milk Of Magnesia Liq) 30 ml PO Q12H PRN PRN Reason: Mild Constipation Benzocaine (Americaine 20% Top [place]) 1 spray TOPICAL Q4H PRN PRN Reason: For Perineum Discomfort Bisacodyl (Dulcolax Supp) 10 mg RECTAL DAILY PRN PRN Reason: SEVERE CONSITIPATION Oxytocin (Pitocin 30 Units/Ns 500 Ml Premix) 30 units in 500 mls @ 100 mls/hr IV.CONT UNSCH PRN PRN Reason: Heavy bleeding Ibuprofen (Motrin) 800 mg PO Q8H PRN PRN Reason: For Cramping Last Admin: 06/15/18 21:37 Dose: 800 mg Lactulose (Lactulose Liq) 30 ml PO DAILY PRN PRN Reason: SEVERE CONSITIPATION Naloxone HCl (Narcan Inj) 0.1 mg IV.PUSH Q2M PRN PRN Reason: for opiate reversal Ondansetron HCl (Zofran Odt) 4 mg PO Q6H PRN PRN Reason: NAUSEA OR VOMITING Senna/Docusate Sodium (Carolyn-Colace) 1 tab PO BID [facility] Last Admin: 06/15/18 21:36 Dose: 1 tab Sennosides (Senokot) 17.2 mg PO Q12H PRN PRN Reason: Moderate Constipation Sodium Chloride (Ns Flush) 2 ml IV.FLUSH BID [facility] Last Admin: 06/16/18 03:02 Dose: Not Given Sodium Chloride (Ns Flush) 2 ml IV.FLUSH PRN PRN PRN Reason: FLUSH AFTER USING IV ACCESS Witch Annalise/Glycerin (Tucks Pads) 1 applicatio RECTAL QID PRN PRN Reason: HEMORRHOIDS Zolpidem Tartrate (Ambien) 5 mg PO HS PRN PRN Reason: SLEEP Assessment and Plan - Plan 32 yr old GBS + adequately treated at 40 weeks PPD1. Patient was counseled to do 6 weeks of pelvic rest. Patient was counseled to follow up in 6 weeks. --AF VSS --Continue routine care --Motrin when necessary for pain --Encourage OOB --Pelvic rest for 6 weeks will need follow-up appointment at that time. --Contraception: tubal outpatient --Anticipate discharge tomorrow Discussed with Dr. Meza
[2018-06-16] MEDS: Senna/Docusate Sodium 8.6/50 MG Tablet PO SCH (08:59)
[2018-06-16] MEDS: Acetaminophen 325 MG Tablet PO PRN (08:59)
[2018-06-17] MEDS: Senna/Docusate Sodium 8.6/50 MG Tablet PO SCH ×2 (04:20→13:35)
--- NOTE | 2018-06-17 09:48 | P.PNOB ---
Subjective Post day: 2 Interval history: Ms Maria had no acute events overnight. She is ambulating, tolerating PO, voiding and flatus, no BM, and pain is well controlled on ibuprofen. Lochia is reducing and normal, , and has plans for tubal ligation 6 weeks with referral from Dr Upton. Denies CP, SOB, N/V/D, abdominal or leg pain. Objective Vital Signs/I&O: Vital Signs 06/16/18 21:16 06/17/18 08:48 Temperature 98.6 F 99.1 F Pulse Rate 61 77 Respiratory Rate 18 16 Blood Pressure 89/63 L 106/69 Result Diagrams: 06/15/18 06:50 Objective Remarks: GENERAL: Well-nourished, well-developed patient. CARDIOVASCULAR: Regular rate and rhythm without murmurs, gallops, or rubs. RESPIRATORY: Breath sounds equal bilaterally. No accessory muscle use. ABDOMEN/GI: Abdomen soft, non-tender. Fundus: Firm, non-tender at umbilicus. GENITOURINARY: Light to moderate bleeding. EXTREMITIES: No cyanosis or edema, non-tender, without signs of DVT. Medications and IVs: Active Medications Acetaminophen (Tylenol) 650 mg PO Q4H PRN PRN Reason: PAIN SCALE 1 TO 2 Last Admin: 06/16/18 08:59 Dose: 650 mg Al Hydroxide/Mg Hydroxide (Milk Of Magnesia Liq) 30 ml PO Q12H PRN PRN Reason: Mild Constipation Benzocaine (Americaine 20% Top [place]) 1 spray TOPICAL Q4H PRN PRN Reason: For Perineum Discomfort Bisacodyl (Dulcolax Supp) 10 mg RECTAL DAILY PRN PRN Reason: SEVERE CONSITIPATION Oxytocin (Pitocin 30 Units/Ns 500 Ml Premix) 30 units in 500 mls @ 100 mls/hr IV.CONT UNSCH PRN PRN Reason: Heavy bleeding Ibuprofen (Motrin) 800 mg PO Q8H PRN PRN Reason: For Cramping Last Admin: 06/17/18 03:09 Dose: 800 mg Lactulose (Lactulose Liq) 30 ml PO DAILY PRN PRN Reason: SEVERE CONSITIPATION Naloxone HCl (Narcan Inj) 0.1 mg IV.PUSH Q2M PRN PRN Reason: for opiate reversal Ondansetron HCl (Zofran Odt) 4 mg PO Q6H PRN PRN Reason: NAUSEA OR VOMITING Senna/Docusate Sodium (Carolyn-Colace) 1 tab PO BID [facility] Last Admin: 06/17/18 04:20 Dose: Not Given Sennosides (Senokot) 17.2 mg PO Q12H PRN PRN Reason: Moderate Constipation Sodium Chloride (Ns Flush) 2 ml IV.FLUSH BID [facility] Last Admin: 06/17/18 04:19 Dose: Not Given Sodium Chloride (Ns Flush) 2 ml IV.FLUSH PRN PRN PRN Reason: FLUSH AFTER USING IV ACCESS Witch Annalise/Glycerin (Tucks Pads) 1 applicatio RECTAL QID PRN PRN Reason: HEMORRHOIDS Zolpidem Tartrate (Ambien) 5 mg PO HS PRN PRN Reason: SLEEP Assessment and Plan - Plan 32 yr old GBS + adequately treated at 40 weeks PPD2. Patient was counseled to do 6 weeks of pelvic rest. Patient was counseled to follow up in 6 weeks and plans to get tubal in 6 weeks. --AF VSS --Continue routine care --Motrin when necessary for pain --Encourage OOB --Pelvic rest for 6 weeks will follow-up with Dr Upton at that time and get referral for tubal. --Contraception: tubal ligation as outpatient --Discharge today Discussed with Dr. Rivas - Attending Attestation The exam, history, and the medical decision-making described in the above note were completed with the assistance of the resident physician. I reviewed and agree with the findings presented. I attest that I had a [id number] encounter with the patient on the same day, and personally performed and documented my assessment and findings in the medical record.
== END 2018-06-17 14:13 | disposition home or self-care (01) ==
LOC: H2E 06:08 → H1EA 16:11
PROVIDERS: ADMIT Obstetrics & Gynecology; ATTEND Obstetrics & Gynecology